=== PATIENT | male | born 1985 | race African-American/Black ===

== ENCOUNTER 2017-12-03 15:42 | Emergency (ER) | payer MEDICARE, OTHER ==
[2017-12-03] MEDS: HALOPERIDOL 5 MG INJ IM (16:59)
[2017-12-03] MEDS: ARIPIPRAZOLE 10 MG TAB PO (16:59)
== END 2017-12-03 22:47 | disposition home or self-care (01) ==
LOC: E/R 15:42
DX: R44.0 Auditory hallucinations (principal); F19.10 Other psychoactive substance abuse, uncomplicated
CPT/HCPCS: 96372; 99284-25

== ENCOUNTER 2018-01-20 08:34 | Emergency (ER) | payer MEDICARE, OTHER ==
[2018-01-20] MEDS: SOD CHLORIDE 0.9% 1,000 ML IV (09:22)
[2018-01-20] MEDS: LORAZEPAM 2 MG INJ IV (09:22)
[2018-01-20 09:27] LABS: ADD MAN DIFF? NO
[2018-01-20 09:28] LABS: WHITE BLOOD COUNT 6.9 10^3/ul (4.8-10.8)
[2018-01-20 09:28] LABS: BASOPHILS % 0.3 % (0.0-2.0); EOSINOPHILS % 0.6 % (0.0-7.0); HEMATOCRIT 44.3 % (42.0-52.0); LYMPHOCYTES # 1.8 10^3/ul (0.8-2.9); LYMPHOCYTES % 25.7 % (15.0-51.0); MEAN CORPUSCULAR HEMOGLOBIN 29.9 pg (29.0-33.0); MEAN CORPUSCULAR HGB CONC 33.9 g/dl (32.0-37.0); MEAN CORPUSCULAR VOLUME 88.2 fl (82.0-101.0); MEAN PLATELET VOLUME 8.8 fl (7.4-10.4); MONOCYTE # 0.5 10^3/ul (0.3-0.9); MONOCYTES % 6.5 % (0.0-11.0); NEUTROPHIL # 4.6 10^3/ul (1.6-7.5); NEUTROPHILS % 66.8 % (39.0-77.0); PLATELET COUNT 269 10^3/UL (140-415); RED BLOOD COUNT 5.02 10^6/ul (4.70-6.10); RED CELL DISTRIBUTION WIDTH 12.6 % (11.5-14.5)
[2018-01-20 09:36] LABS: ADD UMIC YES; UR AMORPHOUS CRYSTAL FEW /HPF (NONE SEEN); UR ASCORBIC ACID NEGATIVE (NEGATIVE); UR BILIRUBIN (Dip) NEGATIVE (NEGATIVE); UR BLOOD (Dip) NEGATIVE (NEGATIVE); UR CLARITY CLOUDY (CLEAR); UR COLOR YELLOW (YELLOW); UR GLUCOSE (Dip) NEGATIVE (NEGATIVE); UR HYALINE CAST FEW /HPF (NONE SEEN); UR KETONES (Dip) NEGATIVE (NEGATIVE); UR LEUKOCYTE ESTERASE (Dip) NEGATIVE Leu/ul (NEGATIVE); UR MUCUS FEW /HPF (NONE SEEN); UR NITRITE (Dip) NEGATIVE (NEGATIVE); UR RBC 0 /HPF (0-5); UR SPECIFIC GRAVITY (Dip) 1.018 (1.003-1.030); UR TOTAL PROTEIN (Dip) NEGATIVE (NEGATIVE); UR UROBILINOGEN (Dip) 2+ mg/dL (NEGATIVE); UR WBC 0 /HPF (0-5)
[2018-01-20 10:07] LABS: ALBUMIN 4.6 g/dl (3.3-4.9); ALBUMIN/GLOBULIN RATIO 1.58; ALKALINE PHOSPHATASE 85 IU/L (42-121); ANION GAP 11 (8-16); ASPARTATE AMINO TRANSFERASE 31 IU/L (15-46); BILIRUBIN,INDIRECT 0.5 mg/dl (0-1.1); BILIRUBIN,TOTAL 0.5 mg/dl (0.2-1.3); CARBON DIOXIDE 28 mmol/L (21-31); CHLORIDE 107 mmol/L (97-110); POTASSIUM 4.6 mmol/L (3.5-5.1); SODIUM 141 mmol/L (135-144); TOTAL PROTEIN 7.5 g/dl (6.1-8.1)
[2018-01-20 10:21] LABS: SALICYLATE < 1.0 mg/dl (5.0-30.0)
[2018-01-20 10:30] LABS: ACETAMINOPHEN < 10.0 ug/ml (10.0-30.0); BLOOD UREA NITROGEN 9 mg/dl (7-20); CALCIUM 10.1 mg/dl (8.4-10.2); CREATININE 0.86 mg/dl (0.61-1.24); ETHANOL < 10.0 mg/dl; GLUCOSE 107 mg/dl (70-220)
[2018-01-20 10:50] LABS: ALANINE AMINOTRANSFERASE 23 IU/L (13-69)
[2018-01-20 11:10] LABS: BARBITURATES Negative (NEGATIVE); BENZODIAZEPINES Negative (NEGATIVE); CANNABINOIDS Positive (NEGATIVE); COCAINE Negative (NEGATIVE); OPIATES Negative (NEGATIVE)
[2018-01-20 11:26] LABS: AMPHETAMINE/METHAMPHETAMINE POSITIVE (NEGATIVE)
== END 2018-01-20 11:08 | disposition home or self-care (01) ==
LOC: E/R 08:34
DX: F14.10 Cocaine abuse, uncomplicated (principal); R40.2142 Coma scale, eyes open, spontaneous, at arrival to emergency department; R40.2362 Coma scale, best motor response, obeys commands, at arrival to emergency department; R40.2252 Coma scale, best verbal response, oriented, at arrival to emergency department; F12.10 Cannabis abuse, uncomplicated
CPT/HCPCS: 36415; 80053; 80307; 81001; 85025; 96374; 99284-25

== ENCOUNTER 2018-03-24 11:03 | Emergency (ER) | payer MEDICARE, OTHER ==
[2018-03-24] MEDS: LORAZEPAM 1 MG TAB PO (12:14)
== END 2018-03-24 13:00 | disposition home or self-care (01) ==
LOC: FTE 11:03
DX: R09.89 Other specified symptoms and signs involving the circulatory and respiratory systems (principal); F17.210 Nicotine dependence, cigarettes, uncomplicated
CPT/HCPCS: 70360; 99283-25